=== PATIENT | female | born 1940 | race Two or more races ===

== ENCOUNTER 2020-10-05 09:21 | Outpatient (CLI) | payer OTHER | END 2020-10-05 09:27 | disposition home or self-care (01) | LOC: SONOGRAMA 09:21 | PROVIDERS: ATTEND Pathology Anatomic Pathology & Clinical Pathology | DX: D34 Benign neoplasm of thyroid gland (principal); E04.1 Nontoxic single thyroid nodule; E04.8 Other specified nontoxic goiter ==